=== PATIENT | male | born 1965 | race Caucasian/White ===

== ENCOUNTER 2024-07-10 08:46 | Day surgery (SDC) | payer OTHER, SELFPAY ==
--- NOTE | 2024-07-10 | PATH_ITS ---
[facility] Accession Number: [id number] No. of containers..01 Tissue . 01 Material submitted: . esophagus - MID ESOPHAGUS . 01 Diagnosis: MID ESOPHAGUS: Squamous mucosa with no diagnostic alterations. No dysplasia or malignancy identified. Eosinophils are not increased. STO 07/12/2024 1450 Local . 01 Electronically signed: . Feliz Blunt MD, Pathologist NPI- [id number] . 01 Gross description: . MID ESOPHAGUS: Received in formalin are 2 fragment(s) of webster, soft tissue measuring 0.2 x 0.2 x 0.2 cm to 0.3 x 0.1 x 0.1 cm submitted entirely in 1 cassette(s) /KOREY 07/12/2024 [facility] Local . 01 Pathologist provided ICD-10: K22.2 . 01 CPT . 772666 Specimen Comment: A courtesy copy of this report has been sent to [phone] Performed at: [address] [facility] [address], [place], [place] [id number] MD Feliz Blunt MD Phone: [phone]
--- NOTE | 2024-07-10 08:48 | P.HP_ITS ---
History of Present Illness History of Present Illness Date Patient Seen: 07/10/24 Chief complaint: SDC Narrative: History of esophageal stricture status post dilation now with increased symptoms need for follow-up dilation. In addition history of adenomatous colon polyps need for follow-up colonoscopy. [facility] Medical History (Updated 07/10/24 @ 08:47 by Tushar Rangel RN) Diverticulitis Meds Home Medications and Allergies Allergies Allergy/AdvReac Type Severity Reaction Status Date / Time No Known Drug Allergies Allergy Verified 07/10/24 08:48 Exam Narrative Exam Narrative: Oropharynx free of lesions Chest clear to auscultation percussion Cardiac exam reveals no S3 or murmur Assessment & Plan Assessment & Plan narrative: Dysphagia with history of stricture dilation need for follow-up EGD and possible dilation. Also need for follow-up colonoscopy due to history of adenomatous colon polyps. Risks, benefits, alternatives have been explained. Time-Based Coding :: [TOTAL MINUTES] spent with patient and on the chart (including review of chart, obtaining history, exam, reviewing outside data, placing orders, documenting exam and treatment plan, and counseling patient) on [DATE].
--- NOTE | 2024-07-10 08:50 | PM.OP.EC ---
Operative Date/Time/Diagnoses Date of procedure: 07/10/24 Pre-op diagnosis: See indication and findings Procedure & Clinicians Study performed: EGD and colonoscopy Indications: History of dysphagia with worsening symptoms need for follow-up EGD and history of adenomatous colon polyps need for colonoscopy. Surgeon: Yuniel Zimmerman Procedure Notes Procedure in detail: After informed consent was obtained patient was placed in left lateral decubitus position. The video upper scope was placed into the oropharynx and with the patient's help swallowed into the esophagus. The esophagus stomach and duodenum were carefully examined. On withdrawal, retroflexed view the GE junction was performed. The scope was removed. The patient tolerated the procedure well. Patient was then turned scope for colonoscopy substituted and this was placed in the rectum easily passed to the cecum. On slow withdrawal mucosa was carefully examined. The scope was removed. The patient tolerated procedure well. Blood loss none Complications none Sedation mac Findings EGD 1. Multiple rings in the proximal to mid esophagus. These were not however just mucosal rings without the appearance of dysmotility. Biopsies were taken to rule out eosinophilic esophagitis 2. From 33-35 cm was a complicated to stricture Schatzki's ring. This was slightly smaller than the scope though I could see through it into the stomach. Using a 10-12 balloon we were able to get the scope through after inflation. The 12-15 mm with balloon was then used to enlarge the dilation. Minimal blood was seen. Scope could easily pass at the end of the dilation. 3. 3 cm hiatal hernia 4. Normal distal stomach and duodenal bulb and sweep Colonoscopy 1. Significant sigmoid diverticulosis 2. Otherwise negative colonoscopy to the cecum other than very tortuous colon. Patient will need follow-up upper endoscopy and dilation within a month or so. Colonoscopy will need to be repeated in 7 years
[2024-07-10 09:04] VITALS: BP 136/85; PULSE 72; RESP 18; TEMP 36.1; O2SAT 98
[2024-07-10] MEDS: LACTATED RINGERS 1,000 ML 42 ML IV (09:11)
--- NOTE | 2024-07-10 09:15 | SUR.OPER ---
EGD SCOPE 043
[2024-07-10 10:09] VITALS: BP 122/82; PULSE 67; RESP 13; TEMP 36.1; O2SAT 92
[2024-07-10 10:14] VITALS: BP 122/81; PULSE 70; RESP 12; O2SAT 94
[2024-07-10 10:19] VITALS: BP 123/78; PULSE 65; RESP 13; O2SAT 94
[2024-07-10 10:20] VITALS: BP 118/90; PULSE 67; RESP 13; TEMP 36.1; O2SAT 95
== END 2024-07-10 10:34 | disposition home or self-care (01) ==
PROVIDERS: PCP Family Medicine; Referring Provider Internal Medicine Gastroenterology; Visit Provider Internal Medicine Gastroenterology
PROC: 0DJ08ZZ Inspection of Upper Intestinal Tract, Via Natural or Artificial Opening Endoscopic (ICD-10-PCS; CPT 43235; principal; 2024-07-10 09:30)
PROC: 0DJD8ZZ Inspection of Lower Intestinal Tract, Via Natural or Artificial Opening Endoscopic (ICD-10-PCS; CPT 45378; 2024-07-10 09:30)
DX: Z12.11 Encounter for screening for malignant neoplasm of colon (principal); R13.10 Dysphagia, unspecified; K22.2 Esophageal obstruction; K44.9 Diaphragmatic hernia without obstruction or gangrene; K57.30 Diverticulosis of large intestine without perforation or abscess without bleeding
CPT/HCPCS: 43249; 43239; 45378; J2704

== ENCOUNTER → 2024-07-11 10:56 | Outpatient (CLI) | payer OTHER, SELFPAY ==
--- NOTE | 2024-07-11 11:01 | DI.RAD.S_ITS ---
PROCEDURE: XR CERVICAL SPINE 4V OR 5V INDICATIONS: HEAD INJURY TECHNIQUE: Five views of the cervical spine acquired. COMPARISON: None. FINDINGS: Bones: No fractures or dislocations to the C7 level. There is trace retrolisthesis C5 on six with moderate disc height loss at this level. Mild uncovertebral joint hypertrophy. Oblique images demonstrate mild bilateral neural foraminal narrowing at C5-6. Soft tissues: No prevertebral soft tissue swelling. IMPRESSION: Chronic appearing degenerative disc osteophyte at C5-6 causing bilateral foraminal narrowing. Dictated by: Valerie Coker M.D. on 07/12/2024 at 20:03 Approved by: Valerie Coker M.D. on 07/12/2024 at 20:04
== END ==
PROVIDERS: PCP Family Medicine; Referring Provider Family Medicine; Visit Provider Family Medicine
DX: Z04.2 Encounter for examination and observation following work accident (principal); S09.90XA Unspecified injury of head, initial encounter; S16.1XXA Strain of muscle, fascia and tendon at neck level, initial encounter; M54.6 Pain in thoracic spine; M48.02 Spinal stenosis, cervical region; X58.XXXA Exposure to other specified factors, initial encounter
CPT/HCPCS: 72050

== ENCOUNTER 2024-07-31 08:15 | Day surgery (SDC) | payer OTHER, SELFPAY ==
[2024-07-31] VITALS (7 sets, daily range): BP systolic 133–151; BP diastolic 82–94; PULSE 57–71; RESP 11–17; TEMP 36.1; O2SAT 94–99
--- NOTE | 2024-07-31 | PATH_ITS ---
[facility] Accession Number: [id number] No. of containers..01 Tissue . 01 Material submitted: . esophagus - ESOPHAGUS . 01 Diagnosis: Esophagus, biopsy: Benign squamous epithelium, with focal increased intraepithelial eosinophils (up to 7 eosinophils in one high power field). See comment. . -- Comment: Findings are compatible with reflux like changes; however, we can't entirely rule out eosinophilic esophagitis. Dr. Johnson reviewed this case and agreed with the above diagnosis. TXN 08/05/2024 1625 Local . 01 Electronically signed: . Jason Chisholm MD, Pathologist NPI- [id number] . 01 Gross description: . Received in formalin with two patient identifiers and esophagus, are mutliple webster soft tissue fragments aggregating to 1.0 x 0.7 x 0.1 cm. Filtered and submitted in cassette A1. ([id number]) /RAÚL 08/01/2024 0955 Local . 01 Pathologist provided ICD-10: K22.2 . 01 CPT . 652666 Specimen Comment: A courtesy copy of this report has been sent to [phone] Performed at: [address], [place], [place] [id number] MD Feliz Blunt MD Phone: [phone]
[2024-07-31] MEDS: LACTATED RINGERS 1,000 ML 42 ML IV (08:55)
--- NOTE | 2024-07-31 09:06 | P.HP_ITS ---
History of Present Illness History of Present Illness Chief complaint: [facility] Narrative: Dysphagia with previous EGD showing a relatively tight Schatzki's ring. This was dilated to 15 Occitan balloon. He feels somewhat improved but difficult to say. EGD to be done to dilate further. In addition subtle rings were found in the esophagus but biopsies were completely negative for eosinophilic esophagitis. Further biopsies to be taken. [facility] Medical History (Updated 07/10/24 @ 08:47 by Tushar Rangel RN) Diverticulitis Social History Smoking Status: Never smoker alcohol intake: current Meds Home Medications and Allergies Home Medications Medication Instructions Recorded Confirmed Type albuterol sulfate 90 mcg/actuation 2 puff inhalation Q4H PRN wheezing 07/10/24 07/31/24 History aerosol inhaler aspirin 81 mg tablet,delayed 81 mg PO DAILY 07/10/24 07/31/24 History release Allergies Allergy/AdvReac Type Severity Reaction Status Date / Time No Known Drug Allergies Allergy Verified 07/31/24 08:44 Exam Vital Signs (past 8 hours): - 07/31/24 08:45 Temperature 97 F L Pulse Rate 71 Respiratory Rate 17 Blood Pressure 136/92 H Pulse Oximetry 98 Oxygen Delivery Method Room Air Oxygen Flow Rate 0 Oxygen Delivery Method Room Air Oxygen Flow Rate 0 Narrative Exam Narrative: Oropharynx free of lesions Chest clear to auscultation percussion Cardiac exam reveals no S3 or murmur Assessment & Plan Assessment & Plan narrative: History of dysphagia status post balloon dilation need for further dilation. In addition further biopsies to be taken to rule out eosinophilic esophagitis. Time-Based Coding :: [TOTAL MINUTES] spent with patient and on the chart (including review of chart, obtaining history, exam, reviewing outside data, placing orders, documenting exam and treatment plan, and counseling patient) on [DATE].
--- NOTE | 2024-07-31 09:08 | P.OP.EGD_ITS ---
Operative Date/Time/Diagnoses Date of procedure: 07/31/24 Pre-op diagnosis: See indication and findings Procedure & Clinicians Study performed: EGD with biopsy and dilation Indications: Dysphagia Surgeon: Yuniel Zimmerman Procedure Notes Procedure in detail: After informed consent was obtained the patient was placed left lateral decubitus position. The video upper scope was placed into the oropharynx and with the patient's help swallowed into the esophagus. The esophagus stomach and duodenum were carefully examined. On withdrawal, retroflexed view of the GE junction was performed. The scope was removed. The patient tolerated the procedure well. Blood loss none Complications none Sedation mac Findings 1. If faint rings in the esophagus were again found. Biopsies were taken in the mid upper esophagus to rule out eosinophilic esophagitis 2. GE junction was more open than at last visit. It was not tenting on the scope using retroflexed view. It was elected to start with the 12-15 balloon. The 12 easily removed within the stricture and to the 13.5 likewise. It was then inflated to 15 mm and was more taut. On withdrawal a small mucosal rent was seen in the area. 3. Also of note is that there were 2 small ulcers at the GE junction. This may be more from healing of the last procedure rather than etiologic in the esophageal stricture 4. Sliding hiatal hernia small 5. Normal distal stomach and duodenum Patient should get on Nexium 40 mg daily and this until he has a chance to conta ct me by telephone in a month. At that time we will determine whether not to repeat dilation. Will also follow-up on his esophageal biopsies.
--- NOTE | 2024-07-31 10:06 | SUR.OPER ---
EGD SCOPE 047
== END 2024-07-31 11:03 | disposition home or self-care (01) ==
PROVIDERS: PCP Family Medicine; Referring Provider Internal Medicine Gastroenterology; Visit Provider Internal Medicine Gastroenterology
PROC: 0DJ08ZZ Inspection of Upper Intestinal Tract, Via Natural or Artificial Opening Endoscopic (ICD-10-PCS; CPT 43235; principal; 2024-07-31 09:30)
DX: R13.10 Dysphagia, unspecified (principal); K22.10 Ulcer of esophagus without bleeding; K44.9 Diaphragmatic hernia without obstruction or gangrene
CPT/HCPCS: 43249; 43239; J2704

== ENCOUNTER → 2025-09-17 16:49 | Outpatient (CLI) | payer OTHER, SELFPAY | PROVIDERS: Family Provider Family Medicine; PCP Family Medicine; Visit Provider Urology | DX: R39.9 Unspecified symptoms and signs involving the genitourinary system (principal) | CPT/HCPCS: 87086 ==

== ENCOUNTER 2025-10-08 06:07 | Inpatient (IN) | payer OTHER, SELFPAY ==
[2025-10-01 07:45] VITALS: BMI 22.4
[2025-10-08] VITALS (17 sets, daily range): BP systolic 120–182; BP diastolic 77–106; PULSE 58–79; RESP 14–25; TEMP 36.1–36.7; O2SAT 69–98; BMI 21.8
--- NOTE | 2025-10-08 | DI.RAD.S_ITS ---
PROCEDURE: XR ABDOMEN 1V INDICATIONS: Utereral stent placement bilateral TECHNIQUE: 5 intra-operative images acquired by the Urology service. COMPARISON: None. FINDINGS: Intraoperative fluoroscopic images shows contrast opacifying bilateral renal collecting systems and bilateral ureters with subsequent bilateral ureteral stent placement. IMPRESSION: Fluoro guidance was provided intraoperatively for bilateral retrograde urogram and ureteral stent placement. Dictated by: Adiel Espinal M.D. on 10/08/2025 at 9:08 Approved by: Adiel Espinal M.D. on 10/08/2025 at 9:09
--- NOTE | 2025-10-08 | PATH_ITS ---
[facility] Accession Number: [id number] No. of containers..02 Tissue . 01 Material submitted: . PART A: colon - SIGMOID COLON PART B: colon - DONUT . 01 Diagnosis: A. SIGMOID COLON, SEGMENTAL RESECTION: Diverticulosis. No significant active inflammation. No dysplasia or malignancy. . B. DONUTS: Colonic mucosa with no significant diagnostic alterations. MRV 10/17/2025 1431 Local . 01 Electronically signed: . Sanjuanita Rodriguez MD, Pathologist NPI- [id number] . 01 Gross description: . A. Received in formalin with two patient identifiers and sigmoid colon is a 14.5 cm in length by 5.0 cm circumference segment of colon. The specimen is received closed with one margin opened (inked blue) and the opposing margin stapled (inked black). The serosa is webster-brown, smooth and dusky. The mucosa is red-webster, focally congested with a 1.0 cm thick wall. Sectioning reveal multiple (greater than 20) diverticula extending into the adipose tissue. No perforations or abscesses are grossly identified. No discrete masses are grossly identified. Prominent lymph nodes are not grossly identified. Ladle Operator sections are submitted as follows: A1: Opposing margins, perpendicular. A2-A3: Diverticula. B. Received in formalin with two patient identifiers and donut are two, 1.9 x 1.5 x 1.1 cm and 2.5 x 2.0 x 1.2 cm, annular portions of bowel wall with embedded sutures and rupesh. The mucosa is red-webster, and focally hemorrhagic, but otherwise4 unremarkable. Ladle Operator sections of each portion are submitted in B1. ([id number]) /MRV 10/09/2025 1854 Local . 01 Pathologist provided ICD-10: K57.32 . 01 CPT . 610968, 521325 Specimen Comment: A courtesy copy of this report has been sent to [facility] Pathology Performed at: [address] [id number] MD Feliz Blunt MD Phone: [phone]
--- NOTE | 2025-10-08 07:03 | P.HP_ITS ---
History of Present Illness History of Present Illness Date Patient Seen: 10/08/25 Time Patient Seen: 07:04 Chief complaint: INPT Lap asst sigmoid colectomy w/ stents Narrative: 60yo M presents for sigmoid colectomy today for colon obstruction due to chronic diverticulitis. [facility] Medical History (Updated 10/01/25 @ 08:08 by Rochelle Javed RN) Eczema History of esophageal stricture Mild asthma Diverticulitis Surgical History (Updated 10/01/25 @ 08:08 by Rochelle Javed RN) Hx of tonsillectomy Hx of colonoscopy (07/10/24) Social History Smoking Status: Former smoker alcohol intake: current Meds Home Medications and Allergies Home Medications ?Medication ?Instructions ?Recorded ?Confirmed ?Type albuterol sulfate 90 mcg/actuation 2 puff inhalation Q 4H PRN wheezing 07/10/24 10/08/25 History aerosol inhaler aspirin 81 mg tablet,delayed 81 mg PO DAILY 07/10/24 1 12/08/24 History release metronidazole 500 mg tablet 500 mg PO TID #3 tabs 07/2110/08/25 Rx neomycin 500 mg tablet 1 g (2 x 500 mg) PO TID 3 do ses #3 08/04/25 10/08/25 Rx tabs Allergies Allergy/AdvReac Type Severity Reaction Status Date / Time bee venom protein (honey bee) Allergy Anaphylaxis Verified 10/08/25 06:53 Exam Narrative Exam Narrative: Const General: healthy appearing, comfortable and no acute distress Orientation: alert and oriented x3 HENMT Ears: hearing grossly normal bilaterally Eyes Visual Duarte: normal visual duarte by confrontation Conjunctivae: conjunctivae normal Sclera: sclerae normal EOM: EOM intact bilaterally Resp Effort & Inspection: normal respiratory effort and able to speak in complete sentences Cardio Rate: regular rate GI Palpation: soft (NT) Extrem General: no pedal edema and no calf tenderness Assessment & Plan Assessment and plan (1) Diverticulitis large intestine w/o perforation or abscess w/o bleeding: Status: Acute Plan Plan laparoscopic sigmoid colectomy. The risks, benefits and options regarding the procedure were explained to the patient in detail. The risks, benefits and options regarding the procedure were explained to the patient in detail. Risk discussion included but not limited to: wound infection, leak, injury to ureter, bleeding, recurrent diverticulitis, stricture. The patient was encouraged to ask questions and they were answered to their satisfaction. The patient understands and is agreeable to proceed. Time-Based Coding :: [TOTAL MINUTES] spent with patient and on the chart (including review of chart, obtaining history, exam, reviewing outside data, placing orders, documenting exam and treatment plan, and counseling patient) on [DATE]. PROFEE Field Instructor Document charge(s): Yes Charge Codes Initial inpatient/observation care: [id number]
[2025-10-08] MEDS: LACTATED RINGERS 1,000 ML 42 ML IV ×2 (07:14→09:00)
[2025-10-08] MEDS: metroNIDAZOLE 500 MG/100 ML PIGGYBACK 100 MG IV ×3 (07:27→23:56)
--- NOTE | 2025-10-08 07:33 | PM.PREOP ---
Pre-operative Note COVID-19 COVID-19 status: Not tested Interval Note History & Physical reviewed/Exam performed by Physician: Yes Changes to H&P: No
[2025-10-08] MEDS: MINERAL OIL 30 ML UDC TOP (08:15)
--- NOTE | 2025-10-08 08:39 | PM.OP.1 ---
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 He is undergoing a laparoscopic sigmoidectomy with Dr. Perez in Sep and I have been requested to assist with a cystoscopy and bilateral ureteral stent placement. Discussed risks of the procedure to include but not limited to pain, bleeding, infection, injury to urethra/bladder/ureter, inability to place the aforementioned stents, urinary tract infection, need for emergent open repair of bladder and/or ureter. He indicated understanding and all of his questions were answered to his satisfaction. Surgeon: Jesse Pate Assisted?: No Anesthesia Type: General Operative Notes Findings: Unremarkable cystoscopy Closure Type: not applicable Specimen(s): none sent Applied: none Estimated Blood Loss (mL): 2 Blood products transfused: none Procedure in detail: Patient was identified in the preoperative holding area and consent confirmed. He was then brought to the operating room where general anesthesia was induced.? He was then placed in the low lithotomy position. He was then prepped and draped in the usual sterile fashion. A surgical timeout was conducted and all were in agreement. Access to the bladder was obtained via a 21Fr cystoscope.? He was noted to have coaptating lateral prostatic lobes without an intravesical median lobe. Bilateral ureteral orifices were noted to be orthotopic in nature. Each ureteral orifice was cannulated using a 5Fr ureteral catheter that was advanced 25cm into each ureter, respectively. The cystoscope was then removed and the lighted attachments were advanced through each ureteral catheter and into the renal pelvis. The bladder was then drained and the cystoscope was removed.? A 16Fr gar catheter was then advanced into the bladder with drainage of clear efflux. 10cc of sterile water was utilized for balloon insufflation. Care of the patient was turned over to the General Surgery team. Complications: none Post-operative Condition: stable Disposition: Acute Care Plan for aftercare: Per the General Surgery team.
--- NOTE | 2025-10-08 08:55 | SUR.OPER ---
Dr. Pate portion of procedure patient placed in Lithotomy on padded OR bed. [place] Pad Positioner under torso. Head on pillow, arms padded and secured on arm boards at less than 90s abduction. Legs secured in padded yellow fins stirrups. Final position approved by Dr. Pate, all pressure points padded and protected. For Dr. Perez portion of procedure, patient placed in Lithotomy on padded OR bed. [place] Pad Positioner under torso. Straps applied across torso. Head on pillow, arms padded and tucked at sides. Legs secured in padded yellow fins stirrups. Final position approved by surgeon and all pressure points padded and protected.
[2025-10-08] MEDS: BUPivacaine 0.25% W/ EPI (PF) 30 ML VIAL 60 ML INJ (09:47)
--- NOTE | 2025-10-08 11:03 | P.OP_ITS ---
Operative Date/Time/Diagnoses Date of procedure: 10/08/25 Time of procedure: 11:22 Pre-op diagnosis: Sigmoid diverticulitis Post-op diagnosis: same Procedure & Clinicians Procedure: Laparoscopic assisted sigmoid colectomy, mobilization of the splenic flexure Same procedure(s) as scheduled: Yes Indications: 60yo M, with sigmoid diverticulitis with obstruction. Surgeon: Maciel Perez Assisted?: Yes Jointer Machine Operator: Wang Franco Anesthesia Type: General Operative Notes Findings: Thickened sigmoid colon as expected secondary to diverticulitis. Closure Type: primary Specimen(s): other (sigmoid colon) Applied: none Estimated Blood Loss (mL): 40 Blood products transfused: none Procedure in detail: After informed consent and satisfactory general endotracheal anesthesia, the abdomen was shaved, prepped and draped in the usual sterile manner. Prior to the procedure the patient had lighted ureteral stents and a gar catheter placed by Dr. Pate. The assistance of Dr. Franco was required due to the na ture of the operation and the patient's disease. Dr. Franco's assistance was necessary to facilitate exposure and efficiency of the operation. Patient received a mechanical bowel prep and Walter prep with oral antibiotics preoperatively. We started him on a multivitamin and liquid protein drinks preoperatively to maximize wound healing. He received Ancef and Flagyl for infection prophylaxis. The pneumoperitoneum was established via an infraumbilical incision through a direct cutdown. The 12 mm balloon catheter was inserted and the abdominal cavity was insufflated to a pressure of 15 mmHg with carbon dioxide gas. The 10 mm 30 degree lens was inserted and no trauma secondary to trocar insertion was noted. The patient was placed in Trendelenburg [id number] position as needed for gravity retraction of the viscera. We placed a left upper quadrant 5 mm, a right upper quadrant 5 mm, a right lower quadrant 12 mm, and a suprapubic 5 mm trocar under direct vision. We started by mobilizing the colon laterally. There were greater omental adhesions to the left lower quadrant and these were divided with the LigaSure device with excellent hemostasis. The white line was opened with hook cautery and continued around the splenic flexure to facilitate a tension-free anastomosis. We then selected our area of rectal transection beyond the splaying of the taenia and the mesentery was windowed in this region and a laparoscopic HEAVEN with green load was fired across the rectum with confident sealing at the staple line. We then used the LigaSure device to divide the mesentery as we marched from distal to proximal with excellent hemostasis. We selected an area of division on the descending colon that was free of diverticular disease and would allow for a tension-free anastomosis. The lighted ureteral stents were very helpful in identifying the ureter throughout the procedure. The ureter position was quite close to the peritoneal dissection on the pelvic sidewall. We then lengthened the umbilical incision and placed an Marky wound protector and delivered the colon through this and divided the colon at the planned division site after using an intestinal clamp proximally to control effluent. There was minimal contents in the lumen of the colon after the mechanical bowel prep. The EEA 29 mm circular stapling instrument was opened and the anvil was placed into the lumen and a pursestring was created with 3-0 Prolene suture and we cleaned any fatty tissue off of the distal bowel for a confident staple line. We then returned this to the abdominal cavity and the EEA stapler was placed per rectum after advancing the dilators and the post was brought out through the middle of the staple line, the anvil was connected and we made sure that there was no twisting of the colon or rectum and the EEA was closed and then fired after a tissue desiccation pause. The two donuts were intact. The air test under water showed no air bubbles consistent with no leaks. There was a tiny point of bleeding at one of the rupesh and this was oversewn with 3-0 Vicryl with excellent hemostasis. We inspected the abdominal cavity and hemostasis was noted to be excellent. We were confident with our anastomosis. We suctioned all the irrigation fluid dry. The pneumoperitoneum was then released and the trocars were removed. There was no bleeding noted at the trocar sites. The right lower quadrant 12 mm trocar site was closed using 3-0 Vicryl interrupted. The fascia below the umbilicus that had been widened was closed using an 0 looped PDS and this closed nicely without fascial defects. The gloves were changed prior to skin closure. The skin incisions were closed using 4-0 Monocryl in a subcuticular manner. Dermabond glue was applied as a final dressing. The estimated blood loss was minimal. The instrument sponge and needle counts were all correct x2. The patient tolerated the procedure well and was extubated in the operating room and transported to the recovery area in stable condition. Complications: none Post-operative Condition: stable Disposition: PACU Plan for aftercare: PACU then medrano
[2025-10-08] MEDS: fentaNYL 100 MCG/2 ML INJ IV ×2 (11:42→12:00)
[2025-10-08] MEDS: hydrOXYzine 50 MG/ML INJ 25 MG IM (11:53)
[2025-10-08] MEDS: LACTATED RINGERS 1,000 ML 75 ML IV (12:34)
--- NOTE | 2025-10-08 13:56 | PC.NURSE ---
1330: Patient complains of severe pain and pressure around bladder. He states to have the urge to urinate but having difficulty eliminating urine. Patients Heart rate 168/102. Dr. Perez notified and new order received. 1355: Patient urinated 15ml of dark brown urine. Bladder scan was done with 9ml. Patient still complains of severe pain. Dr Pate was made aware, new order placed.
[2025-10-08] MEDS: PHENAZOPYRIDINE 100 MG TABLET 200 MG PO ×2 (14:12→23:14)
[2025-10-08 15:04] LABS: Add Manual Diff / Slide Review NO; Hematocrit 45.0 % (41-53); Hemoglobin 15.3 g/dL (13.5-17.5); Lymphocytes Absolute Auto 400 /uL (1100-4500); Mean Corpuscular HGB Conc 34.0 % (30-36); Mean Corpuscular Hemoglobin 32.9 PG (26-34); Mean Corpuscular Volume 96.9 fL (80-100); Platelet Count 209 X10^3/uL (150-400)
[2025-10-08 15:20] LABS: Blood Urea Nitrogen 9 mg/dL (9-20); Calcium 8.3 mg/dL (8.4-10.2); Carbon Dioxide 22 mmol/L (22-32); Chloride 102 mmol/L (98-107); Estimated Glomerular Filt Rate > 60 mL/min (>60); Glucose 175 mg/dL (70-99); HEMOLYSIS 15 (0-50); Magnesium 1.8 mg/dL (1.6-2.3); Potassium 4.0 mmol/L (3.4-5.1); Sodium 134 mmol/L (137-145)
[2025-10-08] MEDS: CALCIUM CARBONATE 500 MG TAB 1000 MG PO (21:28)
--- NOTE | 2025-10-08 23:20 | PC.NURSE ---
Addendum entered by Alyssa Cooper RN 10/09/25 04:03: Up to bathroom and voided. Urine clear, orange with 1 small blood clot noted. Had pyridium earlier for continued burning with urination but states he had no burning this time. Shoulder/rib pain not an issue when getting up this time but did complain of 5/10 abdominal pain so was medicated with oxycodone. Original Note: Patient is alert and oriented. Breath sounds CTA with RA sat of 95%; on continuous oximetry as per MD order; reminded to use IS to help prevent post-op complications and re-educated on proper use. HRR. Denied nausea but did complain of heartburn which was resolved with 500mg Tums. BT hypoactive and shortly ago reported he had passed flatus. Is voiding without difficulty but is still having some burning with urination so medicated with Pyridium. Lap sites x 5 to abdomen are all dermabonded and without redness. Is having significant pain mostly in right ribs and bilateral shoulders believed to be related to use of gas intraoperatively. Is receiving IV Dilaudid and po oxycodone for pain relief but also provided with warm blanket for additional comfort. Encouraged to walk in [place] and has already been out in [place] twice with and walker and, although feels weak, tolerated well. Is wearing bilateral calf SCD's. Fall risk score is moderate and bed alarm is activated. rooming in.
--- NOTE | 2025-10-09 06:10 | PM.PN.IH.1 ---
Subjective Subjective Date Patient Seen: 10/09/25 Time Patient Seen: 06:11 Interval history: Mild nausea, no emesis Tolerating clears +flatus Pain under control Ambulating +void Exam Vital Signs (past 8 hours): Oxygen Delivery Method Room Air Oxygen Flow Rate 0 Const General: comfortable Orientation: alert, awake and oriented x3 Resp Effort & Inspection: normal respiratory effort and able to speak in complete sentences Cardio Rate: regular rate GI Other: ABD: soft, incisions CDI, no drainage, pain appropriate for postop Extrem General: no pedal edema and no calf tenderness Objective Labs 10/08/25 14:55 10/08/25 14:55 Labs: Laboratory Results - last 24 hr 10/08/25 10/08/25 07:17 14:55 WBC 11.1 H RBC 4.64 Hgb 15.3 Hct 45.0 MCV 96.9 MCH 32.9 MCHC 34.0 RDW 11.9 Plt Count 209 Neut % (Auto) 91.2 H Lymph % (Auto) 3.3 L [place] % (Auto) 5.2 Eos % (Auto) 0.0 L Baso % (Auto) 0.3 Neut # (Auto) 15327 H Lymph # (Auto) 400 L [place] # (Auto) 600 Eos # (Auto) 0 Baso # (Auto) 0 Sodium 134 L Potassium 4.0 Chloride 102 Carbon Dioxide 22 BUN 9 Creatinine 0.94 Estimated GFR > 60 BUN/Creatinine Ratio 9.6 Glucose 175 H POC Whole Bld Glucose 77 Calcium 8.3 L Magnesium 1.8 PFSH Medical History (Updated 10/01/25 @ 08:08 by Rochelle Javed RN) Eczema History of esophageal stricture Mild asthma Diverticulitis Surgical History (Updated 10/01/25 @ 08:08 by Rochelle Javed RN) Hx of tonsillectomy Hx of colonoscopy (07/10/24) Social History Smoking Status: Former smoker alcohol intake: current Assessment & Plan Assessment and plan (1) Diverticulitis large intestine w/o perforation or abscess w/o bleeding: Status: Acute Plan POD#1 laparoscopic sigmoid colectomy Pain better controlled with IV dilaudid Protonix for GERD Advance to fulls, no carbonation Afebrile, WBC 11 postop, hgb 15 IV saline lock, u/o adequate Time-Based Coding :: [TOTAL MINUTES] spent with patient and on the chart (including review of chart, obtaining history, exam, reviewing outside data, placing orders, documenting exam and treatment plan, and counseling patient) on [DATE]. 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
[2025-10-09] MEDS: PANTOPRAZOLE DR 40 MG TABLET PO (06:29)
[2025-10-09 08:10] VITALS: BP 149/93; PULSE 71; RESP 17; TEMP 36.6; O2SAT 97
[2025-10-09] MEDS: metroNIDAZOLE 500 MG/100 ML PIGGYBACK 100 MG IV ×3 (08:24→23:50)
--- NOTE | 2025-10-09 08:49 | CM.DANOTE ---
Initial DCP Assessment Note. Review EMR and PT Interview. Met with patient at bedside to discuss discharge needs.PT is alert x 4 sitting up in chair. No acute distress. Independent. Lives with spouse. Payor:?[employer]? PCP: ? Summary & Plan:?60 y/o male s/p Sigmoid Colectomy. Plan: Advance Diet as Tolerated. IVF. IV ABX. Pain control. Discharge to home when improved. Discharge Planning/Care Management CM Discharge Assessment Start: 10/08/25 06:33 Freq: Status: Active Protocol: Document 10/09/25 08:46 SM (Rec: 10/09/25 08:49 [id number]) Discharge Planning Assessment Assigned Discharge Malka Rod RN CM Store Facility Technician Provider Dr. Henry Insurance [employer] Advance Directives? No History Provided By Patient Has Patient been No admitted in last 30 days? Prior Living House Arrangements Household Members spouse Type of Drives own vehicle transporation used prior to admit Independent with ADL Yes 's Is patient alert and Yes oriented? Caregiver for No Another Barriers to No Discharge Comment Spouse can take patient home Discharge Plan Home Referrals Initiated None needed Review Status In Process Please Provide Date 10/09/25 Initial DC Assessment Was Performed Next Review Type Continued Stay Review Pre-Anesthesia Assessment Start: 10/01/25 07:45 Freq: Status: Complete Protocol: Document 10/01/25 07:45 CAB (Rec: 10/01/25 08:19 CAB [id number]) Pre-Anesthesia Assessment Information obtained Phone via Height 173.99 cm Weight 68.039 kg Body Mass Index (BMI 22.4 ) If yes, specialist General surgeon,Urologist seen Patient hospitalized No or treated in the ER in the last year? Patient experienced None in the last year Patient experienced No syncope or dizziness in the last year? Does patient have None history of Has patient ever had No a blood clot? Is patient on No anticoagulant therapy? Does patient have a No internal controls specialist? Does patient have No history of a pacermaker/ICD? Can patient climb a Yes flight of stairs without shortness of breath? Can patient walk Yes around the grocery store without shortness of breath? Does patient have Asthma history of Has patient ever No been to ER/ hospitalized for asthma/COPD? Taken steroids for No asthma or COPD in the last year? Does patient use No oxygen at home? Does patient have No history of Sleep Apnea? Cough or cold No symptoms in the past two weeks? Does patient have No any memory problems? Does patient have None history of Mobility device(s) None used Has patient fallen No within the past year ? Does patient have a No neurostimulator or pain stimulator? Does patient have No chronic pain? Does patient have No history of GERD? Special dietary No needs or difficulty swallowing? Does patient have No history of kidney/ liver problems/ disease? Does patient have No Diabetes? Insulin pump or No continuous glucose monitor? GLP-1? No Does patient have No history of thyroid problems? Does patient have No history of cancer? Alcohol intake a few times a week Smoking status Former smoker Marijuana product No use? Other substance use None Does patient have No history of anesthesia reactions ? Family history of No anesthesia reactions ? Patient/family No member history of Malignant Hyperthermia? Does patient have No history of a blood transfusion reaction ? Anesthesia Review No Requested Patient has Advanced No Directive and/or Power of Rn Faculty? Does patient have Yes assistance after surgery? Who is driving Jewels () patient home after surgery? Phone number [phone] Relationship to Spouse patient PAC Instructions Assistance for 24 hours post-op,Medications to take/ avoid,No ETOH/petroleum product on skin DOS,NPO,Post-op transportation,Pre-op antibiotic,Sturdy shoes/ comfortable clothes,Do not bring valuables and remove jewelry
[2025-10-09] MEDS: SODIUM CHLORIDE 0.9% FLUSH 10 ML IV ×2 (09:26→20:35)
--- NOTE | 2025-10-09 11:41 | DIET.CONS ---
Dietary Consultation Note Admission Date: 10/08/2025 06:07 Assessment: 60 y M admitted for s/p sigmoid colectomy. Dietitian screened for low MNA. Pt and spouse present in room. Report Jun-Jul worsening appetite and eating small portions of soft foods, started doing protein shakes as well per surgeon recc. Before surgery for last month was able to consume more animal based proteins as well and really emphasized protein consumption during that time. Tolerated clears and advanced to fulls. Reports some acid reflux like symptoms after consuming apple juice and ensure clear apple juice and jello. Is taking things slow to avoid nausea. Has breakfast tray in front of him and drank few sips of ensure clear, 2% milk, and reports will have a few bites of the hot cereal. Ht: 173.99 cm Wt: 66 kg BMI: 21.8 UBW: non-significant weight loss, 68 kg on 08/04/25, 67 kg on 09/17/25, hx of 68-66 kg in 2023. Last BM: 10/08/25 (10/08/25 06:33) MNA: 8 [place] Score: 19 Diet: 10/09/25 Breakfast Full Liquid Diet Diet Modifications: no carbonation Nutrition Percent Meal Consumed 50% 10/08/25 18:38 Labs: RBC 4.64 X10^6/uL (4.5-5.9) 10/08/25 14:55 Hgb 15.3 g/dL (13.5-17.5) 10/08/25 14:55 Hct 45.0 % (41-53) 10/08/25 14:55 Creatinine 0.94 mg/dL (0.66-1.25) 10/08/25 14:55 Nutrition Diagnosis: Altered GI function r/t obstruction needing sigmoid colectomy resulting in decrease PO tolerance prior to surgery aeb s/p sigmoid colectomy Interventions: Ensure + chocolate with every meal until PO intakes 75% or more; pt has these at home still and directed to do them there as well until intakes resume to baseline Discussed avoiding high fiber/rough foods for next 2-6 weeks, pt very familiar with this type of diet as he was following it in the months prior to surgery Normal to high fiber diet when cleared by surgeon with advancement of fiber slowly increase 3-5 g per 1-2 weeks until 30 g daily EER: 65-75 g protein (1-1.2 g/kg post op) 1700 kcals (25 kcals/kg per BMI) Monitoring/Evaluations: ONS tolerance, PO tolerance Electronically Signed by: Laquita Kumar 10/09/25 11:41 Clinical Dietitian [address] [address]
[2025-10-09 18:23] VITALS: BP 122/85; PULSE 66; RESP 17; TEMP 36.6; O2SAT 95
[2025-10-09 23:52] VITALS: BP 144/90; PULSE 68; RESP 16; TEMP 36.4; O2SAT 97
[2025-10-10 04:00] VITALS: BP 152/88; PULSE 65; RESP 17; TEMP 36.6; O2SAT 97
[2025-10-10] MEDS: ACETAMINOPHEN 325 MG TABLET 650 MG PO ×2 (06:08→16:15)
[2025-10-10] MEDS: PANTOPRAZOLE DR 40 MG TABLET PO (06:08)
[2025-10-10] MEDS: SODIUM CHLORIDE 0.9% FLUSH 10 ML IV ×2 (08:16→19:51)
[2025-10-10] MEDS: metroNIDAZOLE 500 MG/100 ML PIGGYBACK 100 MG IV (08:16)
[2025-10-10 08:17] VITALS: BP 145/87; PULSE 71; RESP 16; TEMP 36.7; O2SAT 98
--- NOTE | 2025-10-10 10:33 | CM.DPC ---
DCP Cont. Reviewed EMR and team rounds for pt's status updates. Per Hospitalist, pt is currently on clear fluids, and will be working toward advancing his diet today. Will continue to monitor for any further d/c needs. HUY: 10/12.
--- NOTE | 2025-10-10 11:01 | P.PN_ITS ---
Subjective Subjective Date Patient Seen: 10/10/25 Time Patient Seen: 11:01 Interval history: Tolerating a liquid diet Still requiring some occasional IV pain meds Passing gas and has had some loose stool He has had a migraine and he is concerned about his blood pressure which was approximately 150/90 today. Exam Vital Signs (past 8 hours): - 10/10/25 04:00 10/10/25 08:17 Temperature 98 F 98.1 F Pulse Rate 65 71 Respiratory Rate 17 16 Blood Pressure 152/88 H 145/87 H Pulse Oximetry 97 98 Oxygen Flow Rate 0 Oxygen Delivery Method Room Air Oxygen Flow Rate 0 Narrative Exam Narrative: Abdomen is soft, nondistended Appropriately tender Incisions dry and intact Objective Labs 10/08/25 14:55 10/08/25 14:55 PFSH Medical History (Updated 10/01/25 @ 08:08 by Rochelle Javed RN) Eczema History of esophageal stricture Mild asthma Diverticulitis Surgical History (Updated 10/01/25 @ 08:08 by Rochelle Jaevd RN) Hx of tonsillectomy Hx of colonoscopy (07/10/24) Social History household members: spouse Smoking Status: Former smoker alcohol intake: current Assessment & Plan Assessment and plan (1) Diverticulitis large intestine w/o perforation or abscess w/o bleeding: Status: Acute Plan Advance diet to regular He is close to being ready for discharge but he still needs to be able to achieve adequate pain control without IV medications Will stop antibiotics Time-Based Coding :: [TOTAL MINUTES] spent with patient and on the chart (including review of chart, obtaining history, exam, reviewing outside data, placing orders, documenting exam and treatment plan, and counseling patient) on [DATE]. PROFEE Access Services Assistant Document charge(s): No
[2025-10-10 13:56] VITALS: BP 147/92; RESP 18; TEMP 36.3; O2SAT 96
[2025-10-10 17:54] VITALS: BP 145/82; PULSE 61; RESP 16; TEMP 36.8; O2SAT 100
[2025-10-10] MEDS: CALCIUM CARBONATE 500 MG TAB 1000 MG PO (18:52)
[2025-10-10] MEDS: ACETAMINOPHEN SUSP 650 MG/20.3 ML UDC PO (19:50)
[2025-10-10 20:00] VITALS: BP 151/91; PULSE 58; RESP 18; TEMP 36.3; O2SAT 98
[2025-10-11 02:00] VITALS: BP 143/89; PULSE 62; RESP 18; TEMP 36.7; O2SAT 99
[2025-10-11] MEDS: ACETAMINOPHEN SUSP 650 MG/20.3 ML UDC PO (02:14)
[2025-10-11] MEDS: PANTOPRAZOLE DR 40 MG TABLET PO (06:03)
[2025-10-11 07:40] VITALS: BP 142/59; PULSE 64; RESP 16; TEMP 37.1; O2SAT 97
[2025-10-11] MEDS: SODIUM CHLORIDE 0.9% FLUSH 10 ML IV (08:29)
--- NOTE | 2025-10-11 09:48 | P.DS_ITS ---
History of Present Illness History of Present Illness Date Patient Seen: 10/11/25 Time Patient Seen: 09:48 Chief complaint: INPT Lap asst sigmoid colectomy w/ stents Narrative: 60yo M presents for sigmoid colectomy today for colon obstruction due to chronic diverticulitis. Discharge Providers Provider Date of admission: 10/08/25 06:07 Discharge Date: 10/11/25 Primary care physician: Fortunato Henry MD Consults: 10/08/25 12:16 Consult to Discharge Planning Routine Comment: Discharge provider: Maciel Perez MD Summary Hospital Course Discharge Diagnosis: S/P laparoscopic sigmoid colectomy for obstruction due to chronic diverticulitis. Hospital Course: Elective laparoscopic sigmoid colectomy 10/08/25 for obstruction secondary to chronic diverticulitis. Had mild hypertension postop related to pain, would normalize with pain meds. Mild urinary retention postop possibly related to instrumentation associated with ureteral stents that proved helpful to avoid ureteral injury. Postop hgb stable. U/O excellent throughout and entered diuretic phase of recovery within 48 hours. Afebrile throughout. He tolerated clear liquids immediately, fulls on POD#1 and regular by POD#2. He had bowel activity within 24-48 hours. On POD#3 he was discharged home. See postop instructions. Status at Discharge Cognitive/behavioral status at discharge: oriented Functional status at discharge: independent ambulation Overall status at discharge: patient is progressing back to baseline Time Spent with Patient Time spent: Greater than 30 minutes Exam Vital Signs (past 8 hours): - 10/11/25 02:00 10/11/25 07:40 Temperature 98.1 F 98.8 F Pulse Rate 62 64 Respiratory Rate 18 16 Blood Pressure 143/89 H 142/59 H Pulse Oximetry 99 97 Oxygen Flow Rate 0 Oxygen Delivery Method Room Air Oxygen Flow Rate 0 Narrative Exam Narrative: Const General: healthy appearing, comfortable and no acute distress Orientation: alert and oriented x3 Resp Effort & Inspection: normal respiratory effort and able to speak in complete sentences Cardio Rate: regular rate GI Palpation: soft, incisions CDI, no erythema or drainage, tenderness appropriate for postop Extrem General: no pedal edema and no calf tenderness Objective Labs 10/08/25 14:55 10/08/25 14:55 [facility] Medical History (Updated 10/01/25 @ 08:08 by Rochelle Javed RN) Eczema History of esophageal stricture Mild asthma Diverticulitis Surgical History (Updated 10/01/25 @ 08:08 by Rochelle Javed RN) Hx of tonsillectomy Hx of colonoscopy (07/10/24) Social History household members: spouse Smoking Status: Former smoker alcohol intake: current Discharge Assessment & Plan Assessment and Plan Assessment: S/P laparoscopic sigmoid colectomy Plan of Treatment: Home today See d/c instructions Discharge Plan Discharge Plan Patient Disposition: Home Provider Discharge Comment: Diet as tolerated, no carbonation No heavy lifting for 6 weeks postop to reduce risk for hernia Call for fever, spreading redness around incisions, drainage Measure your blood pressure at home and f/u with your PCP for high blood pressure as needed Measure your temperature at home and call for temp > 100.5 Shower OK, no swimming for 2 weeks Use narcotic pain medication, nausea medication as needed Consider Aleve twice daily to reduce pain, drink plenty of liquids and take with food if you take Aleve For heartburn, you can take OTC Pepcid, Prilosec, Prevacid, Nexium as needed Miralax for constipation, one capful of powder in liquid daily Will see you in office next week Call the office number with questions or concerns My cell number is [phone], call me directly if you need anything Discharge orders & Medications Prescriptions: New oxycodone 5 mg capsule 5 - 10 mg PO Q4H PRN (Reason: pain) Qty: 30 0RF ondansetron 4 mg tablet,disintegrating 4 mg PO Q8H PRN (Reason: nausea and vomiting) Qty: 14 0RF Continued aspirin 81 mg Tablet,Delayed Release (Dr/Ec) 81 mg PO DAILY Patient Comments: states has not been using recently albuterol sulfate 90 mcg/actuation HFA aerosol inhaler 2 puff inhalation Q4H PRN (Reason: wheezing) Discontinued metronidazole 500 mg tablet 500 mg PO TID Qty: 3 0RF Rx Instructions: administer at 1 PM, 2 PM, and 11 PM the day prior to surgery neomycin 500 mg tablet 1 g PO TID Qty: 3 0RF Rx Instructions: administer at 1 PM, 2 PM, and 11 PM the day prior to surgery Follow up/Referrals: Fortunato Henry MD [Primary Care Provider, Family Practice] Maciel Perze MD [Physician, General Surgery] Diet/Activity/Treatments Diet: Diet as Tolerated Skin/Wound/Dressing Care Report to your healthcare provider any signs of infection, such as:: chills, fever, night sweats, increased pain, unusual drainage and unusual redness Visit Report/Discharge Packet Instructions: DI for Colectomy, DI for Laparoscopy, DI for Prescription Opioid Use Stand Alone Forms: Patient Portal/API, Stroke Signs & Symptoms Discharge Data Primary Care Provider: Fortunato Henry Charge Codes Discharge inpatient/observation: [id number]
--- NOTE | 2025-10-11 11:47 | CM.DPC ---
DCP Discharge Home Per Surgeon, pt tolerated his advancement of diet to general for dinner last night and today and voiding and pain seems controlled and stable for discharge home today with close outpt f/u. No identified barriers to discharge and orders placed. SW observed pt being taken off the floor with spouse present and no further identified discharge planning needs. Pt glad to be going home. DAVID Maier
--- NOTE | 2025-10-11 12:13 | PC.NURSE ---
Pt alert and oriented, up independently. moving about room easily. Given d/c instructions with present. pain med given before d/c. Pt and agrees with instructions. IV d/c'd intact.
== END 2025-10-11 12:12 | disposition home or self-care (01) | DRG 330 ==
PROVIDERS: Urology; Admitting Provider Surgery; PCP Family Medicine; Referring Provider Surgery; Visit Provider Surgery
PROC: 0T788DZ Dilation of Bilateral Ureters with Intraluminal Device, Via Natural or Artificial Opening Endoscopic (ICD-10-PCS; principal; 2025-10-08 07:45)
PROC: 0DTE0ZZ Resection of Large Intestine, Open Approach (ICD-10-PCS; 2025-10-08 07:45)
DX: K57.32 Diverticulitis of large intestine without perforation or abscess without bleeding (principal); K56.699 Other intestinal obstruction unspecified as to partial versus complete obstruction; K21.9 Gastro-esophageal reflux disease without esophagitis; J45.909 Unspecified asthma, uncomplicated; R33.9 Retention of urine, unspecified; Z87.891 Personal history of nicotine dependence
CPT/HCPCS: 44204; 44213; 52005; 74018; 76000; 80048; 82962; 83735; 85025; A9270; J0330; J0689; J1100; J1171; J2405; J2704; J3010; J3410; J3490; J7120